=== PATIENT | female | born 1945 | race African-American/Black ===

== ENCOUNTER → 2018-07-28 | Outpatient (CLI) | payer MEDICARE, OTHER ==
--- NOTE | 2018-07-29 12:13 | RAD ---
EXAM: Left lower extremity venous Doppler. HISTORY: Left lower extremity pain/swelling. COMPARISON: None. FINDINGS: Grayscale and Doppler analysis of the left lower extremity deep venous system was performed with graded compression and augmentation. The common femoral, greater saphenous, superficial femoral, popliteal and calf veins were assessed. There is no evidence of deep venous thrombosis. IMPRESSION: 1. No evidence of deep venous thrombosis. Electronically signed by: Kelly Mckenna MD (07/29/2018 12:09 PM) [facility] – [place]
== END | disposition home or self-care (01) ==
LOC: US 14:58
PROVIDERS: ATTEND Internal Medicine
DX: M79.89 Other specified soft tissue disorders (principal)
CPT/HCPCS: 93971

== ENCOUNTER → 2020-05-12 | Outpatient (CLI) | payer MEDICARE, OTHER ==
--- NOTE | 2020-05-13 13:57 | CARD ---
MR#: [id number] Date of Study: 05/12/2020 Ordering Physician: VANNESSA LIPSCOMB, Referring Physician: VANNESSA LIPSCOMB, Tech: Autumn Amin APPROVED REPORT EXAM: Two-dimensional and M-mode echocardiogram with Doppler and color Doppler. Other Information Quality : AverageHR: 67bpm Technically limited study due to body habitus. INDICATION Hypertension/HCVD RISK FACTORS Hypertension Diabetes 2D DIMENSIONS RVDd3.6 (2.9-3.5cm)Left Atrium(2D)3.2 (1.6-4.0cm) IVSd1.1 (0.7-1.1cm)Aortic Root(2D)2.8 (2.0-3.7cm) LVDd5.5 (3.9-5.9cm)LVOT Diameter1.9 (1.8-2.4cm) PWd1.0 (0.7-1.1cm)LVDs3.2 (2.5-4.0cm) FS (%) 41.2 %SV105.4 ml LVEF(%)71.5 (>50%) Aortic Valve AoV Peak Ignacio.175.5cm/sAoV VTI39.1cm AO Peak GR.12.3mmHgLVOT Peak Ignacio.136.9cm/s LVOT VTI 31.72cmAO Mean GR.6mmHg DILLON (VMAX)1.15sw0VGE (VTI)2.31cm2 Mitral Valve MV E Nolrwsak887.6cm/sMV DECEL OLTX365sx MV A Gmbzwpwy513.4cm/sMV HGI96lf E/A Ratio0.9MVA (PHT)3.04cm2 TDI E/Lateral E'14.4E/Medial E'12.6 Pulmonary Valve PV Peak Lengawmz73.4cm/sPV Peak Grad.3mmHg Tricuspid Valve TR P. Bhutcsqc317nv/sRAP YRKAXFCA9quTv TR Peak Gr.65xhGdNMKT11isEh Pulmonary Vein S1 Xggvkwsn22.0cm/sD2 Jpwemnxz12.8cm/s PVa mssvrgia225bkqj LEFT VENTRICLE The left ventricle is normal size. There is normal left ventricular wall thickness. The left ventricu lar systolic function is normal and the ejection fraction is within normal range. The Ejection Fracti on is 50-55%. There is normal LV segmental wall motion. Transmitral Doppler flow pattern is Grade I-a bnormal relaxation pattern. RIGHT VENTRICLE The right ventricle is mildly dilated. There is normal right ventricular wall thickness. The right ve ntricular systolic function is normal. ATRIA The left atrium size is normal. The right atrium size is normal. The interatrial septum is intact wit h no evidence for an atrial septal defect or patent foramen ovale as noted on 2-D or Doppler imaging. AORTIC VALVE The aortic valve is moderately calcified. Doppler and Color Flow revealed no significant aortic regur gitation. Calculated aortic valve area is 2.24 cm2 with maximum pressure gradient of 15 mmHg and mean pressure gradient of 8 mmHg. MITRAL VALVE The mitral valve is normal in structure and function. There is no evidence of mitral valve prolapse. There is no mitral valve stenosis. Doppler and Color-flow revealed trace mitral regurgitation. TRICUSPID VALVE The tricuspid valve is normal in structure and function. Doppler and Color Flow revealed trace tricus pid regurgitation with an estimated PAP of 30 mmHg. There is no tricuspid valve stenosis. PULMONIC VALVE The pulmonic valve is not well visualized. Doppler and Color Flow revealed trace pulmonic valvular re gurgitation. There is no pulmonic valvular stenosis. GREAT VESSELS The aortic root is normal in size. The ascending aorta is normal in size. The IVC is normal in size a nd collapses >50% with inspiration. PERICARDIAL EFFUSION There is no evidence of significant pericardial effusion. Critical Notification Critical Value: No <Conclusion> The left ventricular systolic function is normal and the ejection fraction is within normal range. Th e Ejection Fraction is 50-55%. There is normal LV segmental wall motion. The aortic valve is moderately calcified. Calculated aortic valve area is 2.24 cm2 with maximum pressure gradient of 15 mmHg and mean pressure gradient of 8 mmHg. Signed by : Juan Moss, Electronically Approved : 05/13/2020 13:56:47
== END ==
LOC: ECHO 13:15
PROVIDERS: ATTEND Internal Medicine Cardiovascular Disease
DX: I35.1 Nonrheumatic aortic (valve) insufficiency (principal); I10 Essential (primary) hypertension
CPT/HCPCS: 93306

== ENCOUNTER → 2020-10-06 | Outpatient (CLI) | payer MEDICARE ==
--- NOTE | 2020-10-06 16:31 | RAD ---
INDICATION: Reason: Swelling of Bilateral Lower Extremity / Spl. Instructions: / History: COMPARISON: July 2018 TECHNIQUE: Grayscale, color and doppler ultrasound images were obtained of the bilateral lower extrem ity venous vasculature. RIGHT: No thrombus identified in the common femoral vein, femoral vein, popliteal vein or visualized calf ve ins. LEFT: No thrombus identified in the common femoral vein, femoral vein, popliteal vein or visualized calf ve ins. IMPRESSION: * No thrombus identified in deep venous system of bilateral lower extremities. * Prominent lymph node in the right groin measuring 16 mm short axis with preserved hilum. Electronically signed by: Vikram Peng MD (10/06/2020 4:29 PM) [id number]
== END ==
LOC: US 15:35
PROVIDERS: ATTEND Internal Medicine
DX: R22.42 Localized swelling, mass and lump, left lower limb (principal)
CPT/HCPCS: 93970